=== PATIENT | female | born 1970 | race Caucasian/White ===

== ENCOUNTER 2018-07-09 18:08 | Observation (INO) ==
[2018-07-09 18:35] LABS: Basophils # 0.1 10*3/uL (0.0-0.2); Basophils % 0.5 % (0.0-0.8); Eosinophils % 0.1 % (0.00-10.9); Hematocrit 42.5 VOL% (35.7-47.0); Hemoglobin 14.5 GM/DL (12.0-16.0); Immature Granulocytes % 0.3 %; Immature Granulocytes Absolute 0.03 #; Lymphocytes # 2.3 10*3/uL (1.4-4.0); Lymphocytes % 21.4 % (21.3-54.2); Mean Corpuscular HGB Conc 34.1 GM/DL (32-36); Mean Corpuscular Hemoglobin 31 PG (27-34); Mean Corpuscular Volume 90.6 FL (87-102); Mean Platelet Volume 10.6 FL (9.6-12.0); Monocytes # 0.8 10*3/uL (0.11-0.8); Monocytes % 7.1 % (1.7-12.7); Neutrophils # 7.6 10*3/uL (1.4-7.4); Neutrophils % 70.6 % (38.7-73.9); Platelet Count 247 T/CUMM (130-400); Red Blood Count 4.69 MC/CUMM (3.8-5.5); Red Cell Distribution Width 12.2 % (9.3-17.3); White Blood Count 10.7 T/CUMM (4-12)
[2018-07-09 18:48] LABS: PT Patient Result 10.5 SECS
[2018-07-09 18:50] LABS: Calcium 9.8 MG/DL (8.5-10.1); Osmolality,Calculated 278.5 MOS/KG (273-304); Potassium 3.7 MMOL/L (3.5-5.1)
[2018-07-09] MEDS ORDERED: NITROGLYCERIN SL 0.4 MG TABLET SL PRN (19:38)
[2018-07-09] MEDS ORDERED: SODIUM CHLORIDE 0.9% 1,000 ML IV STA (19:38)
[2018-07-09 20:03] LABS: Albumin 4.9 G/DL (3.4-5.0); Bilirubin,Total 0.6 MG/DL (0.2-1.0); Osmolality,Calculated 279.4 MOS/KG (273-304); Potassium 3.6 MMOL/L (3.5-5.1); Total Protein 7.9 G/DL (6.4-8.3)
[2018-07-09] MEDS ORDERED: ENOXAPARIN 30 MG/0.3 ML SYRINGE SUBCUT STA (20:47)
[2018-07-09] MEDS ORDERED: PANTOPRAZOLE 40 MG VIAL IV STA (20:48)
[2018-07-09] MEDS ORDERED: ENOXAPARIN 100 MG/ML SYRINGE SUBCUT ONE (21:01)
[2018-07-09] MEDS ORDERED: NITROGLYCERIN 2% OINT 1 INCH/GM PACK TOP STA (21:46)
[2018-07-09] MEDS ORDERED: INFLUENZA VIRUS VACCINE 0.5 ML SYRINGE IM ONE (22:52)
[2018-07-10] MEDS: METOPROLOL TARTRATE 25 MG TABLET PO SCH ×5 (00:03→22:57)
[2018-07-10] MEDS: SODIUM CHLORIDE 0.9% 1,000 ML IV SCH ×4 (01:07→22:57)
[2018-07-10 02:07] LABS: Basophils % 0.6 % (0.0-0.8); Eosinophils # 0.1 10*3/uL (0.0-0.87); Eosinophils % 1.5 % (0.00-10.9); Hematocrit 34.8 VOL% (35.7-47.0); Immature Granulocytes % 0.1 %; Immature Granulocytes Absolute 0.01 #; Lymphocytes # 3.2 10*3/uL (1.4-4.0); Lymphocytes % 47.2 % (21.3-54.2); Mean Corpuscular HGB Conc 34.5 GM/DL (32-36); Mean Corpuscular Hemoglobin 31 PG (27-34); Mean Corpuscular Volume 91.1 FL (87-102); Mean Platelet Volume 10.6 FL (9.6-12.0); Monocytes # 0.7 10*3/uL (0.11-0.8); Monocytes % 10.8 % (1.7-12.7); Neutrophils # 2.7 10*3/uL (1.4-7.4); Neutrophils % 39.8 % (38.7-73.9); Platelet Count 188 T/CUMM (130-400); Red Blood Count 3.82 MC/CUMM (3.8-5.5); Red Cell Distribution Width 12.3 % (9.3-17.3); White Blood Count 6.8 T/CUMM (4-12)
[2018-07-10 02:33] LABS: Alanine Aminotransferase 40 U/L (13-56); Albumin 3.7 G/DL (3.4-5.0); Alkaline Phosphatase 68 U/L (45-117); Aspartate Amino Transferase 22 U/L (0-37); Bilirubin,Total < 0.39 MG/DL (0.2-1.0); Blood Urea Nitrogen 13 MG/DL (7-18); Calcium 8.3 MG/DL (8.5-10.1); Glucose 98 MG/DL (74-106); Osmolality,Calculated 282.1 MOS/KG (273-304); Potassium 3.1 MMOL/L (3.5-5.1); Sodium 142 MMOL/L (136-145); Total Protein 6.5 G/DL (6.4-8.3)
[2018-07-10] MEDS ORDERED: POTASSIUM CHLORIDE RIDER 10 MEQ in PREMIX 1 EACH IV PRN ×2 (02:43→14:06)
[2018-07-10] MEDS: POTASSIUM CHLORIDE 20 MEQ TABLET PO PRN ×4 (06:31→14:44)
[2018-07-10] MEDS: ASPIRIN 325 MG TABLET PO SCH (10:06)
[2018-07-10] MEDS: PANTOPRAZOLE 40 MG TABLET PO SCH (10:07)
[2018-07-10] MEDS: ENOXAPARIN 100 MG/ML SYRINGE SUBCUT SCH ×2 (10:07→21:03)
[2018-07-10] MEDS: ONDANSETRON 4 MG/2 ML VIAL IV PRN (11:12)
[2018-07-10] MEDS ORDERED: MAGNESIUM SULF RIDER 2 GM in PREMIX 1 EACH IV PRN (14:06)
[2018-07-10] MEDS: GABAPENTIN 100 MG CAPSULE PO SCH ×2 (14:44→20:58)
[2018-07-10] MEDS: ACETAMINOPHEN 325 MG TABLET PO SCH ×2 (14:44→20:58)
[2018-07-10] MEDS: HYOSCYAMINE 0.125 MG TABLET SL SCH ×2 (14:44→20:58)
[2018-07-11 04:20] LABS: Basophils % 0.9 % (0.0-0.8); Eosinophils # 0.1 10*3/uL (0.0-0.87); Eosinophils % 2.5 % (0.00-10.9); Hematocrit 34.4 VOL% (35.7-47.0); Hemoglobin 11.2 GM/DL (12.0-16.0); Lymphocytes # 2.6 10*3/uL (1.4-4.0); Lymphocytes % 58.7 % (21.3-54.2); Mean Corpuscular HGB Conc 32.6 GM/DL (32-36); Mean Corpuscular Hemoglobin 30 PG (27-34); Mean Corpuscular Volume 92.2 FL (87-102); Mean Platelet Volume 11.7 FL (9.6-12.0); Monocytes # 0.4 10*3/uL (0.11-0.8); Monocytes % 8.4 % (1.7-12.7); Neutrophils # 1.3 10*3/uL (1.4-7.4); Neutrophils % 29.5 % (38.7-73.9); Platelet Count 166 T/CUMM (130-400); Red Blood Count 3.73 MC/CUMM (3.8-5.5); Red Cell Distribution Width 12.5 % (9.3-17.3); White Blood Count 4.4 T/CUMM (4-12)
[2018-07-11 04:33] LABS: Calcium 8.5 MG/DL (8.5-10.1); Osmolality,Calculated 285.7 MOS/KG (273-304); Potassium 3.7 MMOL/L (3.5-5.1)
[2018-07-11 04:35] LABS: Risk Ratio 3.04
[2018-07-11] MEDS: METOPROLOL TARTRATE 25 MG TABLET PO SCH ×3 (04:53→21:15)
[2018-07-11 05:26] LABS: Band Neutrophils 2 % (0-10); Eosinophils 4 % (0-10); Lymphocytes 54 % (20-55); Platelet Estimate Normal; Segmented Neutrophils 31 % (50-85); Total Cells Counted 100
[2018-07-11 05:27] LABS: Acanthocytes Few; Atypical Lymphocytes Few; Reactive Lymphocytes 2+
[2018-07-11] MEDS ORDERED: diphenhydrAMINE CAP 25 MG CAPSULE PO ONE (06:00)
[2018-07-11] MEDS ORDERED: DIAZEPAM 5 MG TABLET PO ONE (06:00)
[2018-07-11] MEDS: GABAPENTIN 100 MG CAPSULE PO SCH ×3 (08:04→21:16)
[2018-07-11] MEDS: ENOXAPARIN 100 MG/ML SYRINGE SUBCUT SCH (08:13)
[2018-07-11] MEDS: SODIUM CHLORIDE 0.9% 1,000 ML IV SCH (08:15)
[2018-07-11] MEDS: ASPIRIN 325 MG TABLET PO SCH (08:16)
[2018-07-11] MEDS: PANTOPRAZOLE 40 MG TABLET PO SCH (08:35)
[2018-07-11] MEDS ORDERED: fentaNYL 100 MCG/2 ML VIAL ONE (09:39)
[2018-07-11] MEDS ORDERED: MIDAZOLAM 2 MG/2 ML VIAL ONE (09:39)
[2018-07-11] MEDS ORDERED: LIDOCAINE 1% 20 ML VIAL ONE (10:04)
[2018-07-11] MEDS ORDERED: SERTRALINE 25 MG TABLET PO ONE (10:47)
[2018-07-11] MEDS ORDERED: NAPROXEN 250 MG TABLET PO ONE (10:49)
[2018-07-11] MEDS: HYOSCYAMINE 0.125 MG TABLET SL SCH ×2 (10:53→21:15)
[2018-07-11] MEDS: ACETAMINOPHEN 325 MG TABLET PO SCH ×2 (10:53→21:16)
[2018-07-11] MEDS: ONDANSETRON 4 MG/2 ML VIAL IV PRN (14:55)
[2018-07-11] MEDS ORDERED: SERTRALINE 25 MG TABLET PO SCH (21:00)
[2018-07-11] MEDS ORDERED: ROSUVASTATIN 10 MG TABLET PO SCH (21:00)
[2018-07-12 04:09] LABS: Basophils % 0.6 % (0.0-0.8); Eosinophils # 0.1 10*3/uL (0.0-0.87); Eosinophils % 2.6 % (0.00-10.9); Hematocrit 34.7 VOL% (35.7-47.0); Hemoglobin 11.4 GM/DL (12.0-16.0); Immature Granulocytes % 0.2 %; Immature Granulocytes Absolute 0.01 #; Lymphocytes # 2.5 10*3/uL (1.4-4.0); Lymphocytes % 51.5 % (21.3-54.2); Mean Corpuscular HGB Conc 32.9 GM/DL (32-36); Mean Corpuscular Hemoglobin 30 PG (27-34); Mean Corpuscular Volume 92.3 FL (87-102); Mean Platelet Volume 11.3 FL (9.6-12.0); Monocytes # 0.4 10*3/uL (0.11-0.8); Monocytes % 7.7 % (1.7-12.7); Neutrophils # 1.8 10*3/uL (1.4-7.4); Neutrophils % 37.4 % (38.7-73.9); Platelet Count 159 T/CUMM (130-400); Red Blood Count 3.76 MC/CUMM (3.8-5.5); Red Cell Distribution Width 12.4 % (9.3-17.3); White Blood Count 4.9 T/CUMM (4-12)
[2018-07-12 04:37] LABS: Calcium 8.3 MG/DL (8.5-10.1); Osmolality,Calculated 290.6 MOS/KG (273-304); Potassium 3.6 MMOL/L (3.5-5.1)
[2018-07-12 04:50] LABS: Band Neutrophils 3 % (0-10); Eosinophils 3 % (0-10); Lymphocytes 56 % (20-55); Platelet Estimate Normal; Segmented Neutrophils 34 % (50-85); Total Cells Counted 100
[2018-07-12] MEDS ORDERED: ASPIRIN CHEW 81 MG TABLET PO SCH (09:00)
[2018-07-12] MEDS: ACETAMINOPHEN 325 MG TABLET PO SCH (09:34)
[2018-07-12] MEDS: PANTOPRAZOLE 40 MG TABLET PO SCH (09:34)
[2018-07-12] MEDS: GABAPENTIN 100 MG CAPSULE PO SCH ×2 (09:34→16:03)
[2018-07-12] MEDS: METOPROLOL TARTRATE 25 MG TABLET PO SCH (09:34)
[2018-07-12] MEDS: HYOSCYAMINE 0.125 MG TABLET SL SCH (09:35)
[2018-07-12 11:53] VITALS: BP 140/94
== END 2018-07-12 15:00 | disposition home or self-care (01) ==
LOC: N.ED 18:08 → N.EDINP 18:08 → N.TELEN 22:34
PROVIDERS: ADMIT Internal Medicine Cardiovascular Disease; ATTEND Internal Medicine Cardiovascular Disease
PROC: CLCCHCL (ICD-10-PCS; 2018-07-11 09:45)